=== PATIENT | male | born 1960 | race Caucasian/White ===

== ENCOUNTER 2019-07-21 14:58 | Emergency (ER) | payer SELFPAY ==
[2019-07-21] MEDS ORDERED: diPHENhydraMINE PO* 25 MG PO ONE (16:00)
--- NOTE | 2019-07-21 16:08 | ED ---
Allergic Reaction/Systemic - HPI Summary HPI Summary: This patient is a 59 year old M presenting to ED with a chief complaint of bee sting to the left forearm at 1400 today. The last time he was stung was 20 years ago. He does not have a history of anaphylaxis reaction to bee sting. The patient rates the pain 1/10 in severity. Symptoms aggravated by nothing. Symptoms alleviated by nothing. Patient reports nausea, pain/rash at site of sting. Patient denies lip swelling, throat tightening, SOB. - History of Current Complaint Chief Complaint: EDAllergicReaction Time Seen by Provider: 07/21/19 15:40 Hx Obtained From: Patient Onset/Duration: Sudden Onset, Started hours ago - At 1400 today, Still Present Timing: Constant Severity Initially: Mild Severity Currently: Mild Pain Intensity: 1 Pain Scale Used: 0-10 Numeric Location: Discrete @ - Left forearm Aggravating Factor(s): Nothing Alleviating Factor(s): Nothing Associated Signs And Symptoms: Positive: Nausea, Rash. Negative: Difficulty Breathing, Throat Tightening - Allergies/Home Medications Allergies/Adverse Reactions: Allergies Allergy/AdvReac Type Severity Reaction Status Date / Time Tree Nuts Allergy Unknown See Comment Verified 07/21/19 15:03 Fish Containing Products Allergy Unknown Verified 07/21/19 15:03 Reaction Details PMH/Surg Hx/FS Hx/Imm Hx Endocrine/Hematology History: Denies: Hx Diabetes Cardiovascular History: Denies: Hx Hypercholesterolemia, Hx Hypertension Sensory History: Denies: Hx Legally Blind, Hx Deafness Opthamlomology History: Denies: Hx Legally Blind EENT History: Denies: Hx Deafness - Surgical History Surgery Procedure, Year, and Place: Inguinal hernia repair 2014. Infectious Disease History: No Infectious Disease History: Denies: Traveled Outside the [place] in Last 30 Days - Family History Known Family History: Positive: Cardiac Disease, Diabetes, Other - Cancer - Social History Alcohol Use: Daily Alcohol Amount: 2 beers a night Hx Substance Use: Yes Substance Use Type: Reports: Marijuana Substance Use Comment - Amount & Last Used: occasionally Smoking Status (MU): Heavy Every Day Tobacco Smoker Review of Systems ENT: Negative - Lip swelling, throat tightening Negative: Shortness Of Breath Positive: Nausea Skin: Other - Rash/pain on left forearm All Other Systems Reviewed And Are Negative: Yes Physical Exam - Summary Physical Exam Summary: VITAL SIGNS: Reviewed. GENERAL: Patient is a well-developed and nourished M who is lying comfortable in the stretcher. Patient is not in any acute respiratory distress. HEAD AND FACE: No signs of trauma. No ecchymosis, hematomas or skull depressions. No sinus tenderness. EYES: PERRLA, EOMI x 2, No injected conjunctiva, no nystagmus. EARS: Hearing grossly intact. Ear canals and tympanic membranes are within normal limits. MOUTH: Oropharynx within normal limits. No swelling of tongue and lips. NECK: Supple, trachea is midline, no adenopathy, no JVD, no carotid bruit, no c- spine tenderness, neck with full ROM. CHEST: Symmetric, no tenderness at palpation. LUNGS: Clear to auscultation bilaterally. No wheezing or crackles. CVS: Regular rate and rhythm, S1 and S2 present, no murmurs or gallops appreciated. ABDOMEN: Soft, non-tender. No signs of distention. No rebound, no guarding, and no masses palpated. Bowel sounds are normal. EXTREMITIES: FROM in all major joints, no edema, no cyanosis or clubbing. NEURO: Alert and oriented x 3. No acute neurological deficits. Speech is normal and follows commands. SKIN: Erythema of left forearm. Triage Information Reviewed: Yes Vital Signs On Initial Exam: Initial Vitals Temp Pulse Resp BP Pulse Ox 98.7 F 78 18 163/83 90 07/21/19 15:00 07/21/19 15:00 07/21/19 15:00 07/21/19 15:07/21/19 15:00 Vital Signs Reviewed: Yes Diagnostics - Vital Signs Vital Signs Temp Pulse Resp BP Pulse Ox 07/21/19 15:00 98.7 F 78 18 163/83 90 - Laboratory Lab Statement: Any lab studies that have been ordered have been reviewed, and results considered in the medical decision making process. Allergic Reaction Course/Dx - Course Assessment/Plan: Patient is a 59-year-old male who presents to the emergency department with a localized reaction in the form after he had a bee sting. Patient denies any shortness of breath, denies any swelling, any lip swelling, any feelings that his throat is closing. The patient was evaluated and treated in the ED and the patients symptoms resolved. The patient was observed for approximately 2 hours in the ED and the symptoms do not worsen only improved. Therefore, the patient will be discharged home with follow-up with PCP. Patient was given a prescription for Benadryl. I discussed all the findings and test results with the patient. Patient was instructed to return to the emergency room immediately if any of the symptoms return or worsen. Plan of care was discussed with the patient and understands and agrees. All questions were answered at patient satisfaction. There were no further complaints or concerns. Lung exam before discharge: CTA B/L. Good air exchange. No wheezing or crackles heard. CVS: S1 and S2 present. No murmurs appreciated. Patient is alert and oriented x 3. Patient is hemodynamically stable. Patient will be discharged home with follow up PCP in the next 2-3 days - Diagnoses Differential Diagnosis/HQI/PQRI: Positive: Anaphylaxis, Angioedema, Local Allergic Reaction, Urticaria Provider Diagnoses: Allergic reaction Discharge ED - Sign-Out/Discharge Documenting (check all that apply): Patient Departure - Disharge Patient Received Moderate/Deep Sedation with Procedure: No - Discharge Plan Condition: Stable Disposition: HOME Prescriptions: diPHENhydraMINE PO* [Benadryl PO 25 MG TAB*] 25 mg PO TID PRN #30 tab PRN Reason: Allergy Symptoms Patient Education Materials: Insect Bite or Sting (ED), Allergies (ED) Referrals: Jose MELGAR,Neo Machado [Primary Care Provider] - 3 Days Additional Instructions: FOLLOW UP WITH YOUR PRIMARY CARE PROVIDER WITHIN ONE WEEK. RETURN TO THE ED FOR ANY WORSENING OR NEW SYMPTOMS. - Billing Disposition and Condition Condition: STABLE Disposition: Home - Attestation Statements Document Initiated by Arie: Yes Documenting Scribe: Rahul Tejeda Provider For Whom Arie is Documenting (Include Credential): Pankaj Small MD Scribe Attestation: Rahul Goetz, scribed for Pankaj Small MD on 07/22/19 at 1852. Scribe Documentation Reviewed: Yes Provider Attestation: The documentation as recorded by the Rahul brooks accurately reflects the service I personally performed and the decisions made by me, Pankaj Small MD Status of Scribe Document: Viewed
[2019-07-21 17:35] VITALS: BP 163/90
== END 2019-07-21 17:15 | disposition home or self-care (01) ==
LOC: ED 14:58
DX: T63.441A Toxic effect of venom of bees, accidental (unintentional), initial encounter (principal); Y92.9 Unspecified place or not applicable; F17.200 Nicotine dependence, unspecified, uncomplicated
CPT/HCPCS: 99282; A9270-GY

== ENCOUNTER 2019-12-17 17:09 | Inpatient (IN) | payer BC, OTHER ==
--- NOTE | 2019-12-17 18:09 | ED ---
Lower Extremity - HPI Summary HPI Summary: 59-year-old male presents to the emergency department today complaining of right foot pain for approximately 3 months. Patient states he believes his pain started when he got new shoes and started working at [employer]. Patient has tried self medicating with various creams with no relief of symptoms. Patient complains of swelling which he noted today as well as crusting to his bilateral feet which has been there for months. Patient states he has no medical history diabetes. Patient is able to granulate and otherwise feels well and denies fever, chest pain, abdominal pain, shortness of breath, pain with urination, nausea, vomiting diarrhea. Surgical history and family history Dr. Morfin. - History of Current Complaint Chief Complaint: EDExtremityLower Stated Complaint: R FOOT SWOLLEN PER PT Time Seen by Provider: 12/17/19 17:45 Hx Obtained From: Patient Onset of Pain: Prior to Arrival Onset/Duration: Weeks Severity Initially: Moderate Severity Currently: Moderate Pain Intensity: 6 Pain Scale Used: 0-10 Numeric Location: Is Discrete @ Character Of Pain: Aching Associated Signs And Symptoms: Positive: Swelling, Redness. Negative: Fever Aggravating Factor(s): Standing, Ambulation, Movement, Weight Bearing, Stairs Alleviating Factor(s): Rest Able to Bear Weight: Yes - Allergies/Home Medications Allergies/Adverse Reactions: Allergies Allergy/AdvReac Type Severity Reaction Status Date / Time Tree Nuts Allergy Unknown See Comment Verified 12/17/19 17:13 Fish Containing Products Allergy Unknown Verified 12/17/19 17:13 Reaction Details Home Medications: Home Medications diPHENhydraMINE PO* [Benadryl PO 25 MG TAB*] 25 mg PO TID PRN #30 tab 07/21/19 [ Rx Confirmed 12/17/19] PMH/Surg Hx/FS Hx/Imm Hx Endocrine/Hematology History: Denies: Hx Diabetes Cardiovascular History: Denies: Hx Hypercholesterolemia, Hx Hypertension Sensory History: Denies: Hx Legally Blind, Hx Deafness Opthamlomology History: Denies: Hx Legally Blind - Surgical History Surgery Procedure, Year, and Place: Inguinal hernia repair 2013. Infectious Disease History: No Infectious Disease History: Denies: Traveled Outside the [place] in Last 30 Days - Family History Known Family History: Positive: Cardiac Disease, Diabetes, Other - Cancer - Social History Alcohol Use: Daily Alcohol Amount: 2 beers a night Hx Substance Use: Yes Substance Use Type: Reports: Marijuana Substance Use Comment - Amount & Last Used: occasionally Smoking Status (MU): Heavy Every Day Tobacco Smoker Review of Systems Constitutional: Negative Eyes: Negative ENT: Negative Cardiovascular: Negative Respiratory: Negative Gastrointestinal: Negative Genitourinary: Negative Positive: Edema Positive: Rash Neurological/Mental Status: Negative Psychological: Normal All Other Systems Reviewed And Are Negative: Yes Physical Exam - Summary Physical Exam Summary: Inspection of the lower extremities reveals bilateral erythema, scaling, edema. Physical exam is consistent with venous stasis bilaterally. Inspection of the right foot shows full range of motion with 2+ pitting edema with no evidence of abscess. There is considerable scaling to the plantar aspect of the right foot with yellow/green drainage from the base of the toes where there is small open wound. Physical examination consistent with cellulitis with venous stasis. Triage Information Reviewed: Yes Vital Signs On Initial Exam: Initial Vitals Temp Pulse Resp BP Pulse Ox 97.4 F 80 18 155/83 95 12/17/19 17:10 12/17/19 17:10 12/17/19 17:10 12/17/19 17:10 12/17/19 17:10 Vital Signs Reviewed: Yes Appearance: Positive: Well-Appearing, No Pain Distress, Well-Nourished Skin: Positive: Warm, Skin Color Reflects Adequate Perfusion Eyes: Positive: EOMI, CELENA ENT: Positive: Hearing grossly normal Respiratory/Lung Sounds: Positive: Clear to Auscultation, Breath Sounds Present Cardiovascular: Positive: RRR, S1, S2 Musculoskeletal: Positive: Strength/ROM Intact Psychiatric: Positive: Normal, Affect/Mood Appropriate AVPU Assessment: Alert Procedures - Sedation Patient Received Moderate/Deep Sedation with Procedure: No Diagnostics - Vital Signs Vital Signs Temp Pulse Resp BP Pulse Ox 12/17/19 17:10 97.4 F 80 18 155/83 95 - Laboratory Result Diagrams: 12/17/19 18:10 12/17/19 18:10 Lab Statement: Any lab studies that have been ordered have been reviewed, and results considered in the medical decision making process. Lower Extremity Course/Dx - Course Course Of Treatment: Patient was evaluated in the emergency department today for right foot pain. Vitals noted. Patient afebrile. Physical exam was consistent with cellulitis and possible osteomyelitis. Labs returned showing leukocytosis with a white blood cell count of 11.5. There is a left shift with an absolute neutrophil count of 8.7. CRP is elevated at 25.76. There are no other significant Electrolyte abnormalities or evidence of anemia. Blood glucose 90. X-ray was done which shows no obvious fracture however there is question for possible osteomyelitis. Patient was given 1 dose of IV clindamycin in the emergency department. Hospitalist, Dr. Ibarra was consulted for admission of the patient for MRI and IV antibiotics for possible osteomyelitis. Hospitalist agreed to take the patient for admission. - Diagnoses Differential Diagnosis/HQI/PQRI: Positive: Arthritis, Fracture (Closed), Infection, Osteomyelitis, Sprain, Strain Provider Diagnoses: Infection of right foot Discharge ED - Sign-Out/Discharge Documenting (check all that apply): Patient Departure - Discharge Plan Condition: Stable Disposition: ADMITTED TO [facility] - Billing Disposition and Condition Condition: STABLE Disposition: Admitted to [facility] - Attestation Statements Provider Attestation: I was available for consultation for this patient. I did not evaluate the patient or participate in any medical decision making or disposition decisions unless I am specifically named in the chart as having consulted on the patient. If I have consulted on the patient, please see my own ED note on the patient encounter. Christopher Griffith MD
[2019-12-17 18:17] LABS: ABS Basophils 0.1 10^3/ul (0-0.2); ABS Eosinophils 0.2 10^3/ul (0-0.6); ABS Lymphocytes 1.5 10^3/ul (1.0-4.8); ABS Neutrophils 8.7 10^3/ul (1.5-7.7); Eosinophil % 1.7 %; Hematocrit 49 % (42-52); Lymphocyte % 13.3 %; Mean Corpuscular HGB Conc 33 g/dL (31-36); Mean Corpuscular Hemoglobin 31 pg (27-31); Mean Corpuscular Volume 93 fL (80-94); Mean Platelet Volume 8.3 fL (7.4-10.4); Nucleated Red Blood Cells % 0.1; Platelet Count 259 10^3/uL (150-450); Red Blood Count 5.24 10^6 /uL (4.18-5.48); Red Cell Distribution Width 16 % (10-15); White Blood Count 11.5 10^3/uL (3.5-10.8)
[2019-12-17] MEDS ORDERED: Clindamycin 600 MG/D5W BAG(*) 600 MG/50 ML BAG IV ONE (18:27)
[2019-12-17 18:34] LABS: Albumin 3.7 g/dL (3.2-5.2); Albumin/Globulin Ratio 0.9 (1-3); BUN/Creatinine Ratio 20.3 (8-20); C Reactive Protein 25.76 mg/L (<8.01); Calcium 8.8 mg/dL (8.6-10.3); EGFR Non-African American 128.9 (>60); Globulin 4.1 g/dL (2-4); Potassium 4.2 mmol/L (3.5-5.0); Total Bilirubin 0.5 mg/dL (0.2-1.0); Total Protein 7.8 g/dL (6.4-8.9)
[2019-12-17] MEDS ORDERED: Ondansetron INJ* 2 MG/ML VIAL IV PRN (19:50)
[2019-12-17] MEDS: Acetaminophen TAB* 325 MG PO PRN (21:51)
[2019-12-17] MEDS: Enoxaparin(*) 40 MG/0.4 ML SYR SUBCUT SCH (21:52)
[2019-12-17] MEDS ORDERED: Piperacillin/Tazobac ADVAN(*) 3.375 GM in NS 0.9% 100 ML* 100 ML IVPB ONE (22:02)
[2019-12-17 22:04] LABS: Erythrocyte Sed Rate 14 mm/Hr (0-19)
[2019-12-17] MEDS ORDERED: Dextrose 50% Syringe 50 ML* 25 GM/50 ML SYRINGE IV PUSH PRN (22:58)
[2019-12-17] MEDS ORDERED: Zosyn per Pharmacy* NOTE FOLLOW UP SCH (23:00)
[2019-12-17] MEDS ORDERED: Vancomycin(*) 1,750 MG in NS 0.9% 500 ML* 500 ML IVPB ONE (23:00)
[2019-12-17] MEDS ORDERED: Vancomycin per Pharmacy* NOTE FOLLOW UP SCH (23:00)
--- NOTE | 2019-12-18 01:27 | HP ---
AMENDED REPORT NOW INCLUDES DESIGNATED COSIGNER ADMISSION HISTORY AND PHYSICAL: DATE OF ADMISSION: 12/17/19 PRIMARY CARE PHYSICIAN: Dr. Pemberton. PROVIDER: Messi Downs NP ATTENDING PHYSICIAN: Dr. Ibarra.* (DICTATED BY MESSI DOWNS NP) CHIEF COMPLAINT: Right lower extremity wound. HISTORY OF PRESENT ILLNESS: This is a 59-year-old male with a past medical history significant for previous cellulitis in the right leg and inguinal hernia repair, who came to the emergency room on 12/17/19 for progressive pain and nonhealing wound to the right lower extremity. The patient stated that in June, he started a new job and therefore bought a new pair of boots, but the boots caused some friction across the top of his toes and caused an open wound, which has been there for the past several months. He has tried dealing with it at home by wearing double socks and applying various different antibiotic creams and he stated that within the past month, he has noticed sloughing of skin from his right foot any time he takes his sock off. He has denied any fever or chills. Denies any numbness or tingling except for a spot to his right lateral thigh that has been there since either July or August. He has also reported frequent urination, thirst, occasional chills, occasional nonproductive cough and occasional nausea. In the emergency room, labs were drawn, he was given a dose of clindamycin and foot x-ray was taken, though still awaiting official radiologic read from that. An an MRI was performed of the right lower extremity. Hospitalists were asked to evaluate the patient for admission. PAST MEDICAL HISTORY: Cellulitis to the right lower extremity. PAST SURGICAL HISTORY: 1. Inguinal hernia repair. 2. Shrapnel removal from this throat. HOME MEDICATION: Diphenhydramine 25 mg p.o. t.i.d. p.r.n. ALLERGIES: TREE NUTS and FISH-CONTAINING PRODUCTS. FAMILY HISTORY: His brother had cancer of unknown kind and diabetes. Sister had hypertension and "breathing problems." Other sister had "heart trouble", SOCIAL HISTORY: He smokes less than a pack of cigarettes a day for the past 30 years. He denies any alcohol or recreational substance use. 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 He is not and has no children. REVIEW OF SYSTEMS: A 12-point system review was reviewed. All pertinent positives and negatives are reviewed in the HPI. PHYSICAL EXAMINATION GENERAL: This is a well-developed obese gentleman seen sitting in the bed, in no acute distress. VITAL SIGNS: 97.7 Fahrenheit, 70 pulse, 18 respirations, 96% oxygen on room air and 146/79 blood pressure. HEENT: Conjunctivae pink and moist. PERRLA. EOMs intact. Oropharynx clear. Mucous membranes moist. NECK: Supple. RESPIRATORY: Lung sounds clear throughout bilaterally on room air. No accessory muscle use noted. CARDIAC: S1, S2 present. Heart rate regular. No murmurs, gallops or rubs appreciated. ABDOMEN: Soft, nontender, nondistended with positive bowel sounds x4. MUSCULOSKELETAL: Limited range of motion to the right ankle due to edema. Has 2 to 3+ nonpitting edema to the right lower extremity and 1 to 2 + nonpitting edema to the left lower extremity. 2+ positive pedal pulses bilaterally. NEUROLOGIC: Sensation intact to light touch except for area to right lateral thigh. No other focal deficits appreciated. SKIN: Bilateral lower extremities discolored. Right lower extremity is reddened and dusky. Cap refill is less than 3 seconds. Across the top of his right toes, skin is open and moist with yellow serous drainage. Bilateral lower extremities dry and scaly. PSYCH: He is alert and oriented x4. Thought content organized. DIAGNOSTIC STUDIES/LAB DATA: Foot x-ray performed, still awaiting official radiologic read. 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 Pertinent lab data: WBC is 11.5, creatinine 0.64, BUN and creatinine ratio 20.3. Hemoglobin A1c 6.8. C-reactive protein 25.76. Globulin 4.1, albumin/ globulin ratio 0.9. PLAN FOR EACH CONDITION: 1. Cellulitis with probable osteomyelitis of the right lower extremity. Initially, the patient received 1 dose of clindamycin in the emergency room, however, after MRI revealed possible osteomyelitis, antibiotic coverage was switched to vancomycin and piperacillin. Infectious Disease has been consulted. Ortho should also be consulted in the a.m. Nonhealing wound was suspected to be secondary to possible diabetes as it runs in his family, so hemoglobin A1c was drawn. We will check lipids in a.m. and ankle-brachial indices have been ordered for suspected peripheral vascular disease. 2. Nicotine dependence. I have ordered 14 mg nicotine patch for while he is an inpatient. 3. Newly diagnosed diabetes. Hemoglobin A1c was 6.8. The patient has been symptomatic as evidenced by frequent urination and excessive thirst. The patient has been placed on fingersticks a.c. with sliding scale lispro coverage with the intent that he should be started on metformin upon discharge and we will require referral to the [facility]. 4. New diagnosed hypertension. Blood pressure upon arrival was 155/83 and has remained elevated in the 140s and 150s for several subsequent readings. For its kidney protective factor, we will start the patient on lisinopril in the a.m. 5. DVT prophylaxis: The patient has been started on Lovenox. 6. Code status is full code. 7. Condition is fair. 8. Disposition is to admit inpatient to [address] [place] [address]. TIME SPENT: Time spent on the patient is about 60 minutes with 30 of that spent face to face. MESSI DOWNS, MIME ARTIST [id number]/CPS #: [id number] [facility] DIVISIONAzeem
[2019-12-18] MEDS: ZOSYN 3.375 GM Q8H per EXTENDED INFUSION IVPB SCH ×4 (02:56→10:50)
[2019-12-18] MEDS ORDERED: Clindamycin 600 MG/D5W BAG(*) 600 MG/50 ML BAG IV SCH (04:00)
[2019-12-18] MEDS: Nicotine Patch Removal NOTE FOLLOW UP SCH (05:17)
[2019-12-18 06:19] LABS: ABS Basophils 0.1 10^3/ul (0-0.2); ABS Eosinophils 0.3 10^3/ul (0-0.6); ABS Lymphocytes 1.8 10^3/ul (1.0-4.8); ABS Monocytes 0.9 10^3/ul (0-0.8); ABS Neutrophils 6.3 10^3/ul (1.5-7.7); Eosinophil % 3.1 %; Hematocrit 49 % (42-52); Hemoglobin 16.2 g/dL (14.0-18.0); Lymphocyte % 19.6 %; Mean Corpuscular HGB Conc 33 g/dL (31-36); Mean Corpuscular Hemoglobin 31 pg (27-31); Mean Corpuscular Volume 94 fL (80-94); Nucleated Red Blood Cells % 0.1; Platelet Count 257 10^3/uL (150-450); Red Blood Count 5.18 10^6 /uL (4.18-5.48); Red Cell Distribution Width 16 % (10-15); White Blood Count 9.4 10^3/uL (3.5-10.8)
[2019-12-18 07:10] LABS: Calcium 8.6 mg/dL (8.6-10.3); EGFR African American 161.8 (>60); EGFR Non-African American 133.7 (>60); HDL Cholesterol 40.1 mg/dL; Potassium 4.1 mmol/L (3.5-5.0)
[2019-12-18] MEDS: Vancomycin(*) 1,250 MG in NS 0.9% 250 ML* 250 ML IVPB SCH ×2 (07:59→16:35)
[2019-12-18] MEDS: Nicotine PATCH 14 MG/24 HR* PATCH TRANSDERM SCH (08:21)
[2019-12-18] MEDS: Insulin LISPRO* 1 UNITS UNIT SUBCUT SCH ×3 (08:22→16:43)
[2019-12-18] MEDS: Lisinopril TAB* 5 MG PO SCH (08:22)
[2019-12-18] MEDS ORDERED: Influenza VAC *QUAD* 2019-20* 0.5 ML SYRINGE IM ONE (09:00)
--- NOTE | 2019-12-18 10:37 | PN ---
Subjective Date of Service: 12/18/19 Interval History: Patient has been uninsured for the last 3 years and therefore has not seen a medical provider. He only within the last 1-2 months acquired insurance and established with a new PCP. This is the reason why he has not been evaluated much sooner for this wound. He denies fever/chills, chest pain, difficulty breathing, abd pain. His right foot heel is painful at times but tolerable. His toes to his right toe bases are only painful with movement of the toes. Objective Active Medications: Acetaminophen (Tylenol Tab*) 650 mg PO Q4H PRN PRN Reason: MILD PAIN or TEMP > 100.4 Last Admin: 12/17/19 21:51 Dose: 650 mg Dextrose (D50w Syringe 50 Ml*) 12.5 gm IV PUSH .FOR FS < 60 - SS PRN PRN Reason: FS < 60 Enoxaparin Sodium (Lovenox(*)) 40 mg SUBCUT Q24H [facility] Last Admin: 12/17/19 21:52 Dose: 40 mg Piperacillin Sod/Tazobactam (Sod 3.375 gm/ Sodium Chloride) 100 mls @ 25 mls/ hr IVPB Q8H [facility] Last Admin: 12/18/19 02:56 Dose: 25 mls/hr Vancomycin HCl 1,250 mg/ (Sodium Chloride) 250 mls @ 166.667 mls/hr IVPB Q8H [facility] Last Admin: 12/18/19 07:59 Dose: 166.667 mls/hr Insulin Human Lispro (Humalog*) 0 units SUBCUT [facility]; Protocol Last Admin: 12/18/19 08:22 Dose: 2 units Lisinopril (Prinivil Tab*) 5 mg PO DAILY [facility] Last Admin: 12/18/19 08:22 Dose: 5 mg Metformin HCl (Glucophage*) 500 mg PO DAILY [facility] Nicotine (Nicotine Patch 14 Mg/24 Hr*) 1 patch TRANSDERM DAILY [facility] Last Admin: 12/18/19 08:21 Dose: 1 patch Ondansetron HCl (Zofran Inj*) 4 mg IV Q4H PRN PRN Reason: NAUSEA/VOMITING Pharmacy Consult (Vancomycin Per Pharmacy*) 1 note FOLLOW UP .VANC PER PHARMACY [facility]; Protocol Pharmacy Consult (Zosyn Per Pharmacy*) 1 note FOLLOW UP .ZOSYN PER PHARMACY [facility] Pharmacy Profile Note (Nicotine Patch Removal Note*) 1 note FOLLOW UP 0600 [facility] Last Admin: 12/18/19 05:17 Dose: Not Given Vital Signs - 8 hr 12/18/19 12/18/19 12/18/19 03:15 07:15 08:00 Temperature 98.1 F 98.6 F Pulse Rate 65 64 Respiratory 18 18 16 Rate Blood Pressure 150/82 142/87 (mmHg) O2 Sat by Pulse 91 91 Oximetry Oxygen Devices in Use Now: None Appearance: Obese, white male who appears older than stated age, laying upright in bed, appearing comfortable and in NAD Eyes: No Scleral Icterus, - - PERRL Ears/Nose/Mouth/Throat: Mucous Membranes Moist Neck: Trachea Midline Respiratory: Symmetrical Chest Expansion and Respiratory Effort, Clear to Auscultation Cardiovascular: NL Sounds; No Murmurs; No JVD, RRR, - - strong pedal pulses bilaterally Abdominal: - - abd soft, nontender, nondistended Extremities: No Edema, No Clubbing, Cyanosis Skin: - - bilateral lower legs with skin coloration changes consistent with chronic venous changes; 5 excoriations to right lateral foot near heel; dry, nonpurulent wounds approx 1cm to 1.5cm in length in the toe creases at base of 4th toe 2nd toe respectively with surrounding minimal blanching erythema; significant dryness in all feet Neurological: Alert and Oriented x 3, - - sensation to light touch intact grossly in all toes Result Diagrams: 12/18/19 05:09 12/18/19 05:09 Assess/Plan/Problems-Billing Assessment: 59 yo white male without significant PMHx who has been lost to f/u presents with right foot wounds x ~5 months. - Patient Problems (1) Wound of right foot Current Visit: Yes Status: Acute Code(s): S91.301A - UNSPECIFIED OPEN WOUND , RIGHT FOOT, INITIAL ENCOUNTER SNOMED Code(s): 422713880 Comment: -nonhealing wounds to right foot, present for +5 months -has significant dryness, ordering santyl -recommend calcium alginate for wounds as they are overall dry, discussed w/ nursing -will need good glycemic control (2) Osteomyelitis Current Visit: Yes Status: Acute Code(s): M86.9 - OSTEOMYELITIS, UNSPECIFIED SNOMED Code(s): 61086927 Comment: -2/2 nonhealing wounds of right foot -MRI findings conistent with suspected osteomyelitis of right 2nd distal metatarsal -wound culture PCR negative for MRSA, will change abx to ceftriaxone and flagyl while awaiting full culture -will discuss with ID Friday (12/20/19) -appreciate ortho consult, awaiting decision regarding surgical debridement of wounds (3) Cellulitis of right foot Current Visit: Yes Status: Acute Code(s): L03.115 - CELLULITIS OF RIGHT LOWER LIMB SNOMED Code(s): 759944839 Comment: -2/2 nonhealing right foot wounds -minimal leukocytosis at admission, resolved -afebrile -abx as above (4) Diabetes mellitus type 2 in obese Current Visit: Yes Status: Acute Code(s): E11.69 - TYPE 2 DIABETES MELLITUS WITH OTHER SPECIFIED COMPLICATION; E66.9 - OBESITY, UNSPECIFIED SNOMED Code(s) : 45506061 Comment: -new diagnosis during this hospitalization with A1c of 6.8 -continue lispro SS -starting 500 mg metformin and will monitor for GI sxs -carbohydrate consistent diet -nutrition consult (5) Hypertension Current Visit: Yes Status: Acute Code(s): I10 - ESSENTIAL (PRIMARY) HYPERTENSION SNOMED Code(s): 47548635 Comment: -new dx during this hospitalization -continue new lisinopril (6) Tobacco use Current Visit: Yes Status: Acute Code(s): Z72.0 - TOBACCO USE SNOMED Code( s): 206304621 Comment: -continue nicotine patch (7) DVT prophylaxis Current Visit: Yes Status: Acute Code(s): Z29.9 - ENCOUNTER FOR PROPHYLACTIC MEASURES, UNSPECIFIED SNOMED Code(s): 467331688 Comment: -lovenox (8) Full code status Current Visit: Yes Status: Acute Code(s): Z78.9 - OTHER SPECIFIED HEALTH STATUS SNOMED Code(s): 086280789 Status and Disposition: inpatient
[2019-12-18] MEDS: metFORMIN* 500 MG TAB PO SCH (11:04)
--- NOTE | 2019-12-18 12:43 | CONS ---
CONSULTATION REPORT: DATE OF CONSULT: 12/18/19 CHIEF COMPLAINT: Right foot pain. HISTORY OF PRESENT ILLNESS: Leif is a 59-year-old man who has recently been diagnosed with diabetes. He has not had any primary care for several years. He got a new job at [employer] and as a result got some new boots because he knew he would be on his feet all day. The boots started to cause some pain in his foot and he noticed over the last couple of months that his foot, specifically at the area of his toes, has become more painful, swollen, and red, yesterday was bad enough that he came to the emergency department. He was admitted by the hospitalist for IV antibiotics because an MRI showed a suggestion of early osteomyelitis in his right foot. I was asked to consult and evaluate his right foot. PHYSICAL EXAM: He is a 59-year-old gentleman in mild discomfort, lying in bed. On examination of his right foot and right lower extremity, he has a lot of venous stasis changes. His foot is rather swollen specifically in the mid foot and forefoot area. He has some significant dry skin areas and some cracked areas but no specific open wound. Between the toes is macerated and erythematous. There is no purulent drainage. IMPRESSION: Right foot infection with at least a cellulitis and possibly an osteomyelitis. PLAN: Plan is per the hospitalist and possibly ID consult for IV antibiotics. I will have Dr. Tony evaluate his foot to see if any surgical debridement is warranted in the next couple of days. [id number]/[facility] #: [id number] LONG
[2019-12-18] MEDS: Collagenase 250 UNITS/GM OINT* 1 APPLIC OINT TOPICAL SCH (12:53)
[2019-12-18] MEDS ORDERED: Cefepime 2 GM in Dextrose(*) 2 GM/50 ML BAG IV SCH (16:00)
[2019-12-18] MEDS: metroNIDAZOLE IV 500 MG/100ML* 500 MG/100 ML BAG IVPB SCH (17:09)
[2019-12-18] MEDS: Acetaminophen TAB* 325 MG PO PRN (19:57)
[2019-12-18] MEDS: Enoxaparin(*) 40 MG/0.4 ML SYR SUBCUT SCH (19:58)
[2019-12-18] MEDS: cefTRIAXone(*) 1 GM in NS 0.9% 50 ML* 50 ML IVPB SCH (20:00)
[2019-12-19] MEDS: metroNIDAZOLE IV 500 MG/100ML* 500 MG/100 ML BAG IVPB SCH ×3 (01:46→16:56)
[2019-12-19] MEDS: Nicotine Patch Removal NOTE FOLLOW UP SCH (06:00)
[2019-12-19] MEDS: Insulin LISPRO* 1 UNITS UNIT SUBCUT SCH ×3 (07:29→16:56)
[2019-12-19] MEDS: metFORMIN* 500 MG TAB PO SCH (09:12)
[2019-12-19] MEDS: Collagenase 250 UNITS/GM OINT* 1 APPLIC OINT TOPICAL SCH (09:13)
[2019-12-19] MEDS: Lisinopril TAB* 5 MG PO SCH (09:13)
[2019-12-19] MEDS: Nicotine PATCH 14 MG/24 HR* PATCH TRANSDERM SCH (09:15)
--- NOTE | 2019-12-19 13:18 | PN ---
Subjective Date of Service: 12/19/19 Interval History: Patient overall has no complaints. 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 Denies fever/chills, LE pain, chest pain, abd pain, difficulty breathing. No diarrhea or loose BMs. Objective Active Medications: Acetaminophen (Tylenol Tab*) 650 mg PO Q4H PRN PRN Reason: MILD PAIN or TEMP > 100.4 Last Admin: 12/18/19 19:57 Dose: 650 mg Collagenase (Santyl 250 Units/Gm Oint*) 1 applic TOPICAL DAILY [facility] Last Admin: 12/19/19 09:13 Dose: 1 applic Dextrose (D50w Syringe 50 Ml*) 12.5 gm IV PUSH .FOR FS < 60 - SS PRN PRN Reason: FS < 60 Enoxaparin Sodium (Lovenox(*)) 40 mg SUBCUT Q24H [facility] Last Admin: 12/18/19 19:58 Dose: 40 mg Ceftriaxone Sodium 1 gm/ (Sodium Chloride) 50 mls @ 100 mls/hr IVPB Q24H [facility] Last Admin: 12/18/19 20:00 Dose: 100 mls/hr Metronidazole/Sodium Chloride (Flagyl 500 Mg Ivpb*) 500 mg in 100 mls @ 100 mls /hr IVPB Q8H [facility] Last Admin: 12/19/19 09:12 Dose: 100 mls/hr Insulin Human Lispro (Humalog*) 0 units SUBCUT [facility]; Protocol Last Admin: 12/19/19 11:52 Dose: Not Given Lisinopril (Prinivil Tab*) 5 mg PO DAILY [facility] Last Admin: 12/19/19 09:13 Dose: 5 mg Metformin HCl (Glucophage*) 500 mg PO DAILY [facility] Last Admin: 12/19/19 09:12 Dose: 500 mg Nicotine (Nicotine Patch 14 Mg/24 Hr*) 1 patch TRANSDERM DAILY [facility] Last Admin: 12/19/19 09:15 Dose: 1 patch Ondansetron HCl (Zofran Inj*) 4 mg IV Q4H PRN PRN Reason: NAUSEA/VOMITING Pharmacy Profile Note (Nicotine Patch Removal Note*) 1 note FOLLOW UP 0600 [facility] Last Admin: 12/19/19 06:00 Dose: 1 note Vital Signs - 8 hr 12/19/19 12/19/19 07:15 08:00 Temperature 97.7 F Pulse Rate 64 Respiratory 16 16 Rate Blood Pressure 139/71 (mmHg) O2 Sat by Pulse 91 Oximetry Oxygen Devices in Use Now: None Appearance: Obese white male, laying upright in bed, appearing comfortable and in NAD Eyes: No Scleral Icterus, - - PERRL Ears/Nose/Mouth/Throat: Mucous Membranes Moist Neck: Trachea Midline Respiratory: Symmetrical Chest Expansion and Respiratory Effort, Clear to Auscultation Cardiovascular: NL Sounds; No Murmurs; No JVD, RRR, - - +3 pedal pulses bilaterally Abdominal: - - abd soft, nontender, nondistended Extremities: No Edema, No Clubbing, Cyanosis Skin: - - chronic venous stasis to LEs, R toe wounds remain dry; dressing clean/ dry/intact Neurological: Alert and Oriented x 3 Result Diagrams: 12/18/19 05:09 12/18/19 05:09 Microbiology and Other Data: Microbiology 12/18/19 11:00 Skin and Soft Tissue MRSA/MSSA (PCR - Final Toe - Right Big Mrsa Negative S.aureus Positive Gram Stain - Final Assess/Plan/Problems-Billing Assessment: 59 yo white male without significant PMHx who has been lost to f/u presents with right foot wounds x ~5 months. - Patient Problems (1) Wound of right foot Current Visit: Yes Status: Acute Code(s): S91.301A - UNSPECIFIED OPEN WOUND , RIGHT FOOT, INITIAL ENCOUNTER SNOMED Code(s): 503767072 Comment: -nonhealing wounds to right foot, present for +5 months -has significant dryness, ordering santyl -recommend xeroform for wounds as they are overall dry, discussed w/ nursing -will need good glycemic control -ortho will decide if wound debridement tomorrow AM when Dr. Tony in, ortho recommends NPO after midnight and holding tonight's lovenox in anticipation of possible washout (2) Osteomyelitis Current Visit: Yes Status: Acute Code(s): M86.9 - OSTEOMYELITIS, UNSPECIFIED SNOMED Code(s): 75762496 Comment: -2/2 nonhealing wounds of right foot -MRI findings conistent with suspected osteomyelitis of right 2nd distal metatarsal -wound culture PCR negative for MRSA, will change abx to ceftriaxone and flagyl while awaiting full culture -will discuss with ID Friday (12/20/19) -appreciate ortho consult, awaiting decision regarding surgical debridement of wounds (3) Cellulitis of right foot Current Visit: Yes Status: Acute Code(s): L03.115 - CELLULITIS OF RIGHT LOWER LIMB SNOMED Code(s): 083604765 Comment: -2/2 nonhealing right foot wounds -minimal leukocytosis at admission, resolved -afebrile -abx as above (4) Diabetes mellitus type 2 in obese Current Visit: Yes Status: Acute Code(s): E11.69 - TYPE 2 DIABETES MELLITUS WITH OTHER SPECIFIED COMPLICATION; E66.9 - OBESITY, UNSPECIFIED SNOMED Code(s) : 94720786 Comment: -new diagnosis during this hospitalization with A1c of 6.8 -continue lispro SS -starting 500 mg metformin and will monitor for GI sxs -carbohydrate consistent diet -nutrition consult (5) Hypertension Current Visit: Yes Status: Acute Code(s): I10 - ESSENTIAL (PRIMARY) HYPERTENSION SNOMED Code(s): 12992228 Comment: -new dx during this hospitalization -continue new lisinopril (6) Tobacco use Current Visit: Yes Status: Acute Code(s): Z72.0 - TOBACCO USE SNOMED Code( s): 804551381 Comment: -continue nicotine patch (7) DVT prophylaxis Current Visit: Yes Status: Acute Code(s): Z29.9 - ENCOUNTER FOR PROPHYLACTIC MEASURES, UNSPECIFIED SNOMED Code(s): 604324119 Comment: -lovenox held tonight in anticipation of possible washout tomorrow (8) Full code status Current Visit: Yes Status: Acute Code(s): Z78.9 - OTHER SPECIFIED HEALTH STATUS SNOMED Code(s): 492293368 Status and Disposition: inpatient
--- NOTE | 2019-12-19 14:05 | PN ---
Progress Note - Progress Note Date of Service: 12/19/19 SOAP: Subjective: Pt is doing well. Pain is controlled. Denies F/C, CP/SOB, N/T of calf pain Objective: PE- 59 y/o WDWN M NAD, A&O x3 RLE- chronic skin changes of the lower extremity, edema and erythema of the forefoot that is tender to palpation, no active drainage, abrasion on volar aspect of foot at base of great/2nd toe and 4th toe, +1 DP pulse, SILT distally Vital Signs Temp Pulse Resp BP Pulse Ox 97.7 F 64 16 139/71 91 12/19/19 07:15 12/19/19 07:15 12/19/19 08:00 12/19/19 07:15 12/19/19 07:15 Laboratory Results - last 24 hr 12/18/19 12/19/19 12/19/19 16:43 07:21 11:45 POC Glucose (mg/dL) 127 H 105 H 112 H Studies: MRI showed evidence of right foot cellulitis with possible osteomyelitis of the distal second metatarsal Assessment: Right foot infection Plan: Heel WB Dr. Tony to evaluate tomorrow Afebrile and WBC improving, at this point unlikely that he will need an acute washout- will cont to monitor Will hold lovenox today and make npo after midnight in case he needs to go to OR tomorrow Appreciate hospitalist input May need OLIVIA on DC
[2019-12-19] MEDS: cefTRIAXone(*) 1 GM in NS 0.9% 50 ML* 50 ML IVPB SCH (20:49)
[2019-12-20] MEDS: metroNIDAZOLE IV 500 MG/100ML* 500 MG/100 ML BAG IVPB SCH ×3 (00:29→17:03)
[2019-12-20] MEDS: Nicotine Patch Removal NOTE FOLLOW UP SCH (06:49)
[2019-12-20] MEDS: Insulin LISPRO* 1 UNITS UNIT SUBCUT SCH ×3 (07:39→17:02)
[2019-12-20] MEDS: Lisinopril TAB* 5 MG PO SCH (08:48)
[2019-12-20] MEDS: metFORMIN* 500 MG TAB PO SCH (08:48)
[2019-12-20] MEDS: Nicotine PATCH 14 MG/24 HR* PATCH TRANSDERM SCH (10:25)
--- NOTE | 2019-12-20 11:25 | PN ---
Progress Note - Progress Note Date of Service: 12/20/19 SOAP: Subjective: Pt is doing well. Pain improved. Denies F/C, Cp/SOb or calf pain Objective: PE- 59 y/o WDWN M NAD, A&O x3 RLE- chronic skin changes of the lower extremity, edema and erythema of the forefoot that is tender to palpation, 2nd toe tender to palpation, no active drainage, abrasion on volar aspect of foot at base of great/2nd toe and 4th toe , +1 DP pulse, SILT distally Vital Signs Temp Pulse Resp BP Pulse Ox 97.7 F 63 20 124/70 92 12/20/19 07:15 12/20/19 07:15 12/20/19 08:00 12/20/19 07:15 12/20/19 07:15 Laboratory Results - last 24 hr 12/19/19 12/19/19 12/20/19 11:45 16:42 07:32 POC Glucose (mg/dL) 112 H 134 H 103 H Assessment: Right foot cellulitis/osteomyelitis Plan: Heel WB Dr. Tony to evaluate tomorrow Afebrile foot improving. No need for acute washout Ok to eat- carb consistent diet restarted Restart lovenox ABIs ordered to monitor blood flow Appreciate hospitalist input Cont abx per ID recommendations May need OLIVIA on DC
--- NOTE | 2019-12-20 12:21 | CONS ---
CONSULTATION REPORT: DATE OF CONSULT: 12/20/19 REQUESTING PROVIDER: KASANDRA Boyer CONSULTING SERVICE: Infectious Disease. REASON FOR CONSULT: Foot infection. IMPRESSION: 1. Right forefoot cellulitis with nonhealing non-pressure related wound about the second metatarsal head and an MRI shows possible early osteomyelitis of the second metatarsal head. A wound culture is growing group C strep and methicillin- sensitive Staphylococcus aureus. 2. Stasis dermatitis and venous insufficiency, chronic. 3. Morbid obesity. 4. Undiagnosed type 2 diabetes. Hemoglobin A1c here is 6.8. RECOMMENDATIONS: Continue ceftriaxone and Flagyl. He is going to have ankle- brachial indices. We will likely plan on a long course of IV antibiotics for osteomyelitis of the forefoot. HISTORY OF PRESENT ILLNESS: This is a 59-year-old man with obesity. He has had about 2 to 3 months of a wound over his right forefoot, which developed after wearing some new boots. The wound just never closed up. He has not noticed decreased sensation or tingling in his feet. Here, he was found to have hyperglycemia and a hemoglobin A1c of 6.8. He had MRI with results as above. He has been followed by Orthopedics and having Betadine dressings applied. Initial white count was 11.5 on 12/17/19 down to 9.4 on 12/18/19. Initial CRP was 25. He has not had fevers or chills at home and has not had them here either. PAST MEDICAL HISTORY: 1. Obesity. 2. Status post inguinal hernia repair. 3. History of shrapnel removal from his throat. 4. Type 2 diabetes mellitus. ALLERGIES: No known drug allergies. MEDICATIONS: 1. Tylenol. 2. Enoxaparin. 3. Lisinopril. 4. Metformin. 5. Flagyl 500 mg IV every 8 hours by infusion. 6. Nicotine patch. 7. Ceftriaxone. 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 He lives in [place]. He is a nonsmoker. FAMILY HISTORY: No recurrent infections. REVIEW OF SYSTEMS: All negative except as noted above to a 12-point review. PHYSICAL EXAM: Vital Signs: Temperature is 37, heart rate 60, respiratory rate 18, blood pressure 153/81, oxygen saturation 91% on room air. In general, he is awake, not in distress. Neurologic: He is oriented x3. Follows commands. Moves all extremities. Sensation decreased to light touch in both feet. HEENT: There is no conjunctival hemorrhage. Oropharynx without lesions. Neck: Neck is supple without mass. Heart is regular rate and rhythm without murmurs, rubs, or gallops. Lungs are clear to auscultation bilaterally. Abdomen: Soft, nontender, nondistended. There are bowel sounds present. Skin: There is no rash or splinter hemorrhage. There is stasis dermatitis in the bilateral lower extremities. Musculoskeletal: There is bilateral nonpitting edema. On the right forefoot, there are some eschars between the toes. There is some edema and erythema in the forefoot. Tenderness over the second metatarsal but not the others. LABORATORY DATA: White blood cell count 9, hemoglobin 16, platelets 257. Please see impression and recommendations outlined above, which I have discussed with Dr. Tony. Thanks for asking me to see Mr. Monaco in consultation. [id number]/[facility] #: [id number] MTDD
--- NOTE | 2019-12-20 12:49 | PN ---
Subjective Date of Service: 12/20/19 Interval History: LE pain improving. Denies any complaints Family History: Unchanged from Admission Social History: Unchanged from Admission Past Medical History: Unchanged from Admission Objective Active Medications: Acetaminophen (Tylenol Tab*) 650 mg PO Q4H PRN PRN Reason: MILD PAIN or TEMP > 100.4 Last Admin: 12/18/19 19:57 Dose: 650 mg Collagenase (Santyl 250 Units/Gm Oint*) 1 applic TOPICAL DAILY [facility] Last Admin: 12/19/19 09:13 Dose: 1 applic Dextrose (D50w Syringe 50 Ml*) 12.5 gm IV PUSH .FOR FS < 60 - SS PRN PRN Reason: FS < 60 Enoxaparin Sodium (Lovenox(*)) 40 mg SUBCUT Q24H [facility] Ceftriaxone Sodium 1 gm/ (Sodium Chloride) 50 mls @ 100 mls/hr IVPB Q24H [facility] Last Admin: 12/19/19 20:49 Dose: 100 mls/hr Metronidazole/Sodium Chloride (Flagyl 500 Mg Ivpb*) 500 mg in 100 mls @ 100 mls /hr IVPB Q8H [facility] Last Admin: 12/20/19 10:13 Dose: 100 mls/hr Insulin Human Lispro (Humalog*) 0 units SUBCUT [facility]; Protocol Last Admin: 12/20/19 11:48 Dose: Not Given Lisinopril (Prinivil Tab*) 5 mg PO DAILY [facility] Last Admin: 12/20/19 08:48 Dose: Not Given Metformin HCl (Glucophage*) 500 mg PO DAILY [facility] Last Admin: 12/20/19 08:48 Dose: Not Given Nicotine (Nicotine Patch 14 Mg/24 Hr*) 1 patch TRANSDERM DAILY [facility] Last Admin: 12/20/19 10:25 Dose: 1 patch Ondansetron HCl (Zofran Inj*) 4 mg IV Q4H PRN PRN Reason: NAUSEA/VOMITING Pharmacy Profile Note (Nicotine Patch Removal Note*) 1 note FOLLOW UP 0600 [facility] Last Admin: 12/20/19 06:49 Dose: 1 note Vital Signs - 8 hr 12/20/19 12/20/19 12/20/19 07:15 08:00 11:15 Temperature 97.7 F 98.2 F Pulse Rate 63 59 Respiratory 20 20 18 Rate Blood Pressure 124/70 153/81 (mmHg) O2 Sat by Pulse 92 91 Oximetry Oxygen Devices in Use Now: None Eyes: No Scleral Icterus Ears/Nose/Mouth/Throat: NL Teeth, Lips, Gums Neck: NL Appearance and Movements; NL JVP Respiratory: Symmetrical Chest Expansion and Respiratory Effort Cardiovascular: NL Sounds; No Murmurs; No JVD Abdominal: NL Sounds; No Tenderness; No Distention Extremities: - - bilateral LE edema, erythema improving.Dressing cdi Neurological: Alert and Oriented x 3 Result Diagrams: 12/18/19 05:09 12/18/19 05:09 Microbiology and Other Data: Microbiology 12/18/19 11:00 Skin and Soft Tissue MRSA/MSSA (PCR - Final Toe - Right Big Mrsa Negative S.aureus Positive Gram Stain - Final Assess/Plan/Problems-Billing Assessment: 59 yo white male without significant PMHx who has been lost to f/u presents with right foot wounds x ~5 months. - Patient Problems (1) Wound of right foot Current Visit: Yes Status: Acute Code(s): S91.301A - UNSPECIFIED OPEN WOUND , RIGHT FOOT, INITIAL ENCOUNTER SNOMED Code(s): 759439398 Comment: -nonhealing wounds to right foot, present for +5 months -has significant dryness, ordering santyl -recommend xeroform for wounds as they are overall dry, discussed w/ nursing -will need good glycemic control -ortho will decide if wound debridement this AM when Dr. Tony in, ortho recommended NPO after midnight and holding tonight's lovenox in anticipation of possible washout -Will await ortho input this am (2) Osteomyelitis Current Visit: Yes Status: Acute Code(s): M86.9 - OSTEOMYELITIS, UNSPECIFIED SNOMED Code(s): 15549397 Comment: -2/2 nonhealing wounds of right foot -MRI findings conistent with suspected osteomyelitis of right 2nd distal metatarsal -wound culture PCR negative for MRSA, was changed abx to ceftriaxone and flagyl while awaiting full culture -ID Dr No consulted (12/20/19) -appreciate ortho consult, awaiting decision regarding surgical debridement of wounds (3) Diabetes mellitus type 2 in obese Current Visit: Yes Status: Acute Code(s): E11.69 - TYPE 2 DIABETES MELLITUS WITH OTHER SPECIFIED COMPLICATION; E66.9 - OBESITY, UNSPECIFIED SNOMED Code(s) : 75397325 Comment: -new diagnosis during this hospitalization with A1c of 6.8 -continue lispro SS -starting 500 mg metformin and will monitor for GI sxs -carbohydrate consistent diet -nutrition consult (4) Hypertension Current Visit: Yes Status: Acute Code(s): I10 - ESSENTIAL (PRIMARY) HYPERTENSION SNOMED Code(s): 31421635 Comment: -new dx during this hospitalization -continue new lisinopril (5) Tobacco use Current Visit: Yes Status: Acute Code(s): Z72.0 - TOBACCO USE SNOMED Code( s): 424754762 Comment: -continue nicotine patch (6) DVT prophylaxis Current Visit: Yes Status: Acute Code(s): Z29.9 - ENCOUNTER FOR PROPHYLACTIC MEASURES, UNSPECIFIED SNOMED Code(s): 578589524 Comment: -lovenox held in anticipation of possible washout today (7) Full code status Current Visit: Yes Status: Acute Code(s): Z78.9 - OTHER SPECIFIED HEALTH STATUS SNOMED Code(s): 980357832 Status and Disposition: inpatient
[2019-12-20] MEDS: Collagenase 250 UNITS/GM OINT* 1 APPLIC OINT TOPICAL SCH (13:55)
--- NOTE | 2019-12-20 15:22 | CONS ---
CONSULTATION REPORT: DATE OF CONSULT: 12/20/19 HISTORY OF PRESENT ILLNESS: Leif is a 59-year-old gentleman admitted 3 days ago to the medical service. He had had increasing blistering, swelling, and pain of his right forefoot. He has newly diagnosed diabetes and hypertension. He has been admitted with some elevation to his right leg. ID consult is underway. PHYSICAL EXAM: He on examination has significant venous stasis changes throughout the main and hindfoot area and then a brawny erythema all around the forefoot area with some thickened hyperkeratotic skin. The hyperkeratotic skin is cracking and oozing, but there is no candice ulcer noted. DIAGNOSTIC STUDIES: He has MELISSA studies pending. His MRI shows edema of the proximal phalanx and metatarsal head of the second ray. IMPRESSION AND PLAN: Leif has most likely some osteomyelitis in his forefoot, which would be explained by brawny edema, cellulitis, increased pain and swelling. My preference would be for him to have some broad-spectrum IV antibiotic coverage for a few days before surgery as I am wondering how well his skin will heal given the thickened and dried condition. We will follow with the orthopedic team. [id number]/[facility] #: [id number] LONG
[2019-12-20] MEDS: cefTRIAXone(*) 1 GM in NS 0.9% 50 ML* 50 ML IVPB SCH (20:42)
[2019-12-20] MEDS ORDERED: Enoxaparin(*) 40 MG/0.4 ML SYR SUBCUT SCH (21:00)
[2019-12-21] MEDS: metroNIDAZOLE IV 500 MG/100ML* 500 MG/100 ML BAG IVPB SCH ×3 (00:16→16:48)
[2019-12-21 06:51] LABS: ABS Basophils 0.1 10^3/ul (0-0.2); ABS Eosinophils 0.3 10^3/ul (0-0.6); ABS Lymphocytes 1.4 10^3/ul (1.0-4.8); ABS Monocytes 0.9 10^3/ul (0-0.8); ABS Neutrophils 5.9 10^3/ul (1.5-7.7); Eosinophil % 3.3 %; Hematocrit 49 % (42-52); Hemoglobin 16.5 g/dL (14.0-18.0); Lymphocyte % 16.3 %; Mean Corpuscular HGB Conc 34 g/dL (31-36); Mean Corpuscular Hemoglobin 31 pg (27-31); Mean Corpuscular Volume 92 fL (80-94); Mean Platelet Volume 8.7 fL (7.4-10.4); Nucleated Red Blood Cells % 0.1; Platelet Count 260 10^3/uL (150-450); Red Blood Count 5.34 10^6 /uL (4.18-5.48); Red Cell Distribution Width 16 % (10-15); White Blood Count 8.5 10^3/uL (3.5-10.8)
[2019-12-21 07:03] LABS: BUN/Creatinine Ratio 24.6 (8-20); Calcium 8.8 mg/dL (8.6-10.3); EGFR African American 164.9 (>60); EGFR Non-African American 136.2 (>60); Potassium 4.1 mmol/L (3.5-5.0)
[2019-12-21] MEDS: Nicotine Patch Removal NOTE FOLLOW UP SCH (07:18)
[2019-12-21] MEDS: Insulin LISPRO* 1 UNITS UNIT SUBCUT SCH ×3 (07:54→16:45)
[2019-12-21] MEDS: Lisinopril TAB* 5 MG PO SCH (09:34)
[2019-12-21] MEDS: Nicotine PATCH 14 MG/24 HR* PATCH TRANSDERM SCH (09:34)
[2019-12-21] MEDS: metFORMIN* 500 MG TAB PO SCH (09:34)
[2019-12-21] MEDS: Collagenase 250 UNITS/GM OINT* 1 APPLIC OINT TOPICAL SCH ×2 (09:35→10:10)
--- NOTE | 2019-12-21 10:42 | PN ---
Progress Note - Progress Note Date of Service: 12/21/19 SOAP: Subjective: CC: Right foot infection HPI: Mr. Monaco is a 59 yo male with PMH significant for obesity, peripheral neuropathy, and DM2; who presented to the hospital with a right foot infection. He states that the area started out as dry skin and then developed a black area. Denies fever, chills, nausea, or vomiting. He reports 3-4 loose stools daily. He has baseline peripheral neuropathy. Objective: Vital Signs - 8 hr 12/21/19 12/21/19 12/21/19 03:06 07:15 09:27 Temperature 98 F 98.2 F Pulse Rate 68 92 68 Respiratory 16 18 Rate Blood Pressure 115/52 123/56 160/82 (mmHg) O2 Sat by Pulse 91 93 Oximetry Physical Exam: General: NAD, sitting up in bed Neurological: Alert and Oriented HEENT: Moist MM Cardiovascular: Heart rate regular Respiratory: Lung sounds clear, diminished Abdominal: Bowel sounds present; ABD soft, non tender, and obese MSK: GIFFORD Skin: No rash. Bilateral LEs with hemosiderin staining. Area of black eschar to the dorsal aspect of the right 3rd toe Laboratory Results - last 24 hr 12/20/19 12/20/19 12/21/19 11:45 16:14 06:13 WBC 8.5 RBC 5.34 Hgb 16.5 Hct 49 MCV 92 MCH 31 MCHC 34 RDW 16 H Plt Count 260 MPV 8.7 Neut % (Auto) 69.2 Lymph % (Auto) 16.3 Irwin % (Auto) 10.3 Eos % (Auto) 3.3 Baso % (Auto) 0.9 Absolute Neuts (auto) 5.9 Absolute Lymphs (auto) 1.4 Absolute Monos (auto) 0.9 H Absolute Eos (auto) 0.3 Absolute Basos (auto) 0.1 Absolute Nucleated RBC 0.0 Nucleated RBC % 0.1 POC Glucose (mg/dL) 95 140 H 12/21/19 12/21/19 06:13 07:52 Sodium 136 Potassium 4.1 Chloride 102 Carbon Dioxide 28 Anion Gap 6 BUN 15 Creatinine 0.61 L Est GFR ( Amer) 164.9 Est GFR (Non-Af Amer) 136.2 BUN/Creatinine Ratio 24.6 H Glucose 93 POC Glucose (mg/dL) 89 Calcium 8.8 Microbiology 12/18/19 11:00 Skin and Soft Tissue MRSA/MSSA (PCR - Final Toe - Right Big Mrsa Negative S.aureus Positive Gram Stain - Final Wound Culture - Final Strep Dysgalactiae (Grp C) Staphylococcus Aureus Assessment: 1. Right foot cellulitis with nonhealing wound. Wound culture with Group C strep and staph aureus. Afebrile and no leukocytosis. MRI with cellulitis and possible early osteomyelitis of the 2nd metatarsal. ABIs normal. 2. Stasis dermatitis and venous insufficiency. Bilateral LEs with stasis dermatitis and hemosiderin staining. 3. Morbid obesity. BMI 32.5 4. DM2. Plan: Continue ceftriaxone and Flagyl, will need an extended course of IV ABX at discharge in the setting of osteomyelitis.
--- NOTE | 2019-12-21 11:14 | PN ---
Subjective Date of Service: 12/21/19 Interval History: Mr. Monaco states that his R 3rd digit is feeling better since admission. He reports pain with walking prior to admission, but notes that he has not been walking much since admission. He is having difficulty with adhering to heel only weight bearing. He is eating, drinking well. He c/o coughing, which he states is chronic. He denies CP, SOB, fever, chills. Family History: Unchanged from Admission Social History: Unchanged from Admission Past Medical History: Unchanged from Admission Objective Active Medications: Acetaminophen (Tylenol Tab*) 650 mg PO Q4H PRN PRN Reason: MILD PAIN or TEMP > 100.4 Last Admin: 12/18/19 19:57 Dose: 650 mg Collagenase (Santyl 250 Units/Gm Oint*) 1 applic TOPICAL DAILY [facility] Last Admin: 12/21/19 10:10 Dose: Not Given Dextrose (D50w Syringe 50 Ml*) 12.5 gm IV PUSH .FOR FS < 60 - SS PRN PRN Reason: FS < 60 Enoxaparin Sodium (Lovenox(*)) 40 mg SUBCUT Q24H [facility] Last Admin: 12/20/19 20:42 Dose: 40 mg Ceftriaxone Sodium 1 gm/ (Sodium Chloride) 50 mls @ 100 mls/hr IVPB Q24H [facility] Last Admin: 12/20/19 20:42 Dose: 100 mls/hr Metronidazole/Sodium Chloride (Flagyl 500 Mg Ivpb*) 500 mg in 100 mls @ 100 mls /hr IVPB Q8H [facility] Last Admin: 12/21/19 09:34 Dose: 100 mls/hr Insulin Human Lispro (Humalog*) 0 units SUBCUT [facility]; Protocol Last Admin: 12/21/19 07:54 Dose: Not Given Lisinopril (Prinivil Tab*) 5 mg PO DAILY [facility] Last Admin: 12/21/19 09:34 Dose: 5 mg Metformin HCl (Glucophage*) 500 mg PO DAILY [facility] Last Admin: 12/21/19 09:34 Dose: 500 mg Nicotine (Nicotine Patch 14 Mg/24 Hr*) 1 patch TRANSDERM DAILY [facility] Last Admin: 12/21/19 09:34 Dose: 1 patch Ondansetron HCl (Zofran Inj*) 4 mg IV Q4H PRN PRN Reason: NAUSEA/VOMITING Pharmacy Profile Note (Nicotine Patch Removal Note*) 1 note FOLLOW UP 0600 [facility] Last Admin: 12/21/19 07:18 Dose: 1 note Vital Signs: Temp Pulse Resp BP Pulse Ox 98.2 F 68 18 160/82 93 12/21/19 07:15 12/21/19 09:27 12/21/19 08:00 12/21/19 09:27 12/21/19 07:15 Oxygen Devices in Use Now: None Appearance: Mr. Monaco is an obese middle-aged white male who is laying in bed, appears to be in no acute distress. Eyes: No Scleral Icterus, PERRLA Ears/Nose/Mouth/Throat: NL Teeth, Lips, Gums, Clear Oropharnyx, Mucous Membranes Moist Neck: NL Appearance and Movements; NL JVP, Trachea Midline Respiratory: Symmetrical Chest Expansion and Respiratory Effort, Clear to Auscultation - diminished throughout without wheeze, rhonchi, rales Cardiovascular: NL Sounds; No Murmurs; No JVD, RRR Abdominal: NL Sounds; No Tenderness; No Distention, No Hepatosplenomegaly Extremities: - - RLE with crusting, flaking skin; there is an area of eschar between digits 1 and 2, and an area of eschar at the dorsal aspect of the 3rd digit; there is no drainage or apparent wound opening. Neurological: Alert and Oriented x 3 Result Diagrams: 12/21/19 06:13 12/21/19 06:13 Microbiology and Other Data: Microbiology 12/18/19 11:00 Skin and Soft Tissue MRSA/MSSA (PCR - Final Toe - Right Big Mrsa Negative S.aureus Positive Gram Stain - Final Assess/Plan/Problems-Billing Assessment: 59 yo white male without significant PMHx who has been lost to f/u presents with right foot wounds x ~5 months. - Patient Problems (1) Wound of right foot Comment: -nonhealing wounds to right foot, present for +5 months -has significant dryness and flaking, as well as areas of eschar -wound consult ordered -will need good glycemic control -ortho following, considering possible washout -ID consulted for antibiotic recommendations -meanwhile, continue ceftriaxone, metronidazole (2) Osteomyelitis Comment: -2/2 nonhealing wounds of right foot -MRI findings conistent with suspected osteomyelitis of right 2nd distal metatarsal -wound culture PCR negative for MRSA; positive for staph aureus, strep dysgalactiae -ID Dr No consulted; continue ceftriaxone, metronidazole at this time -appreciate ortho consult, awaiting decision regarding surgical debridement of wounds (3) Diabetes mellitus type 2 in obese Comment: -new diagnosis during this hospitalization with A1c of 6.8 -continue lispro SS -starting 500 mg metformin and will monitor for GI sxs -carbohydrate consistent diet -nutrition consult (4) Hypertension Comment: -new dx during this hospitalization -moderate control with SBR 110-160's -continue new lisinopril (5) Tobacco use Comment: -continue nicotine patch (6) DVT prophylaxis Comment: -lovenox held; last dose 12/20 evening (7) Full code status Status and Disposition: Inpatient. Discharge when stable. Anticipate extended course of antibiotics and possible OLIVIA.
--- NOTE | 2019-12-21 13:19 | PN ---
Progress Note - Progress Note Date of Service: 12/21/19 SOAP: Subjective: []Pt seen at bedside. He is comfortable without complaints. Feels RLE erythema and swelling have improved since admission. Objective: []Gen: NAD, nontoxic appearing RLE: hemosiderin staining lower leg. Hyperkeratotic skin of forefoot circumfrentially much of which is now sloughing, removed sloughing areas. Healing cracked skin 1st webspace. No oozing or discharge. Calves supple, nontender. Assessment: []Likely osteomyelitis R forefoot. Cellulitis, improving. Plan: []Cont abx per ID Dr. De Jesus will come discuss treatment options with patient tonight. Ankle-brachial indices: Right: Value (SBP) Index Brachial: 149 Posterior tibialis: 174 1.14 Dorsalis pedis: 161 1.06 Left: Value (SBP) Index Brachial: 152 Posterior tibialis: 162 1.07 Dorsalis pedis: 158 1.04 Doppler waveforms (acquired at rest): In the interrogated lower extremity arteries, Doppler waveforms are triphasic in all distributions. Volume pulse recordings (acquired at rest): Volume pulse recordings, measured at the bilateral ankles, are symmetric. IMPRESSION: No evidence of claudication or significant arterial insufficiency by vascular ultrasound MELISSA standards. Vital Signs Temp 98.4 F 12/21/19 11:42 Pulse 65 12/21/19 11:42 Resp 18 12/21/19 11:42 BP 147/72 12/21/19 11:42 Pulse Ox 91 12/21/19 11:42 Intake & Output 12/20/19 12/21/19 12/21/19 18:59 06:59 18:59 Intake Total 132 960 4801 Output Total 760 700 Balance 200 250 300 Intake: IV Fluids 30 NS (0.9%) 30 IVPB 100 250 ABX - CEFTRIAXONE 50 ABX - FLAGYL 100 200 Oral 830 0 1000 Output: Urine 760 700 Other: Estimated Void Medium Date of Last Bowel [id number] Movement # Bowel Movements 0 0 1 Estimated Stool Amount Large # Voids 0 1 Laboratory Last Values WBC 8.5 10^3/uL (3.5-10.8) 12/21/19 06:13 RBC 5.34 10^6 /uL (4.18-5.48) 12/21/19 06:13 Hgb 16.5 g/dL (14.0-18.0) 12/21/19 06:13 Hct 49 % (42-52) 12/21/19 06:13 MCV 92 fL (80-94) 12/21/19 06:13 MCH 31 pg (27-31) 12/21/19 06:13 MCHC 34 g/dL (31-36) 12/21/19 06:13 RDW 16 % (10-15) H 12/21/19 06:13 Plt Count 260 10^3/uL (150-450) 12/21/19 06:13 MPV 8.7 fL (7.4-10.4) 12/21/19 06:13 Neut % (Auto) 69.2 % 12/21/19 06:13 Lymph % (Auto) 16.3 % 12/21/19 06:13 Emmons % (Auto) 10.3 % 12/21/19 06:13 Eos % (Auto) 3.3 % 12/21/19 06:13 Baso % (Auto) 0.9 % 12/21/19 06:13 Absolute Neuts (auto) 5.9 10^3/ul (1.5-7.7) 12/21/19 06:13 Absolute Lymphs (auto) 1.4 10^3/ul (1.0-4.8) 12/21/19 06:13 Absolute Monos (auto) 0.9 10^3/ul (0-0.8) H 12/21/19 06:13 Absolute Eos (auto) 0.3 10^3/ul (0-0.6) 12/21/19 06:13 Absolute Basos (auto) 0.1 10^3/ul (0-0.2) 12/21/19 06:13 Absolute Nucleated RBC 0.0 10^3/ul 12/21/19 06:13 Nucleated RBC % 0.1 12/21/19 06:13 ESR 14 mm/Hr (0-19) 12/17/19 18:10 Sodium 136 mmol/L (135-145) 12/21/19 06:13 Potassium 4.1 mmol/L (3.5-5.0) 12/21/19 06:13 Chloride 102 mmol/L (101-111) 12/21/19 06:13 Carbon Dioxide 28 mmol/L (22-32) 12/21/19 06:13 Anion Gap 6 mmol/L (2-11) 12/21/19 06:13 BUN 15 mg/dL (6-24) 12/21/19 06:13 Creatinine 0.61 mg/dL (0.67-1.17) L 12/21/19 06:13 Est GFR ( Amer) 164.9 (>60) 12/21/19 06:13 Est GFR (Non-Af Amer) 136.2 (>60) 12/21/19 06:13 BUN/Creatinine Ratio 24.6 (8-20) H 12/21/19 06:13 Glucose 93 mg/dL (70-100) 12/21/19 06:13 POC Glucose (mg/dL) 82 mg/dL (70-100) 12/21/19 11:46 Hemoglobin A1c 6.8 % (4.0-5.6) H 12/17/19 18:10 Calcium 8.8 mg/dL (8.6-10.3) 12/21/19 06:13 Total Bilirubin 0.50 mg/dL (0.2-1.0) 12/17/19 18:10 AST 14 U/L (13-39) 12/17/19 18:10 ALT 10 U/L (7-52) 12/17/19 18:10 Alkaline Phosphatase 65 U/L (34-104) 12/17/19 18:10 C-Reactive Protein 25.76 mg/L (<8.01) H 12/17/19 18:10 Total Protein 7.8 g/dL (6.4-8.9) 12/17/19 18:10 Albumin 3.7 g/dL (3.2-5.2) 12/17/19 18:10 Globulin 4.1 g/dL (2-4) H 12/17/19 18:10 Albumin/Globulin Ratio 0.9 (1-3) L 12/17/19 18:10 Triglycerides 122 mg/dL 12/18/19 05:09 Cholesterol 152 mg/dL 12/18/19 05:09 LDL Cholesterol 88 mg/dL 12/18/19 05:09 HDL Cholesterol 40.1 mg/dL 12/18/19 05:09 <Angélica Mcintosh - Last Filed: 12/21/19 13:19> - Progress Note SOAP: I saw and examined sil. He has chronic stasis changes of the skin in his b/l LE's. On the right he has swelling and erythema. No discrete ulcers or wound appreciated although he does have cracking from dried out skin. No tenderness although he is very neuropathic. He thinks foot has improved since starting abx. MRI with osteomyelitis at 2nd MT head and possibly base of 2nd toe prox phalanx. MELISSA's WNL. A/P: Right foot cellulitis with likely underlying 2nd ray osteomyelitis. disc dx and treatment options with patient at length. We discussed both op and non-op options. He would strongly prefer to try and treat infection without surgery if possible. I did explain risk of persistent or even worsening infection with abx alone. He understands risks but would prefer to try. We did discuss that he may fail abx treatment and still need a toe/ray amp or possibly even more extensive amp should infection worsen. He is ok with this. I will plan on holding off on surgery for now. Plan for abx per ID. Ortho will follow along. Kaiser De Jesus MD <Kaiser De Jesus - Last Filed: 12/21/19 17:10>
[2019-12-21] MEDS: cefTRIAXone(*) 1 GM in NS 0.9% 50 ML* 50 ML IVPB SCH (21:08)
[2019-12-22] MEDS: metroNIDAZOLE IV 500 MG/100ML* 500 MG/100 ML BAG IVPB SCH ×3 (00:14→17:09)
[2019-12-22] MEDS: Nicotine Patch Removal NOTE FOLLOW UP SCH (06:07)
--- NOTE | 2019-12-22 11:04 | PN ---
Progress Note - Progress Note Date of Service: 12/22/19 SOAP: Subjective: CC: Right foot infection HPI: Mr. Monaco is a 59 yo male with PMH significant for obesity, peripheral neuropathy, and DM2; who presented to the hospital with a right foot infection. He states that the area started out as dry skin and then developed a black area. The black area on the right foot was debrided yesterday and there are no open areas on the foot. Denies fever, chills, nausea, or vomiting. He reports 5- 6 loose stools daily, this is increased from his baseline, but has been stable for a few days and is not getting better. He has baseline peripheral neuropathy. Objective: Vital Signs - 8 hr 12/22/19 12/22/19 12/22/19 04:04 07:15 09:46 Temperature 97.5 F 97.2 F Pulse Rate 69 68 Respiratory 24 20 Rate Blood Pressure 140/59 135/42 (mmHg) O2 Sat by Pulse 94 91 Oximetry Physical Exam: General: NAD, sitting up in bed Neurological: Alert and Oriented HEENT: Moist MM Cardiovascular: Heart rate regular Respiratory: Lung sounds clear, diminished Abdominal: Bowel sounds present; ABD soft, non tender, and obese MSK: GIFFORD Skin: No rash. Bilateral LEs with hemosiderin staining Laboratory Tests 12/17/19 12/21/19 12/21/19 18:10 06:13 06:13 WBC 8.5 Hgb 16.5 Hct 49 Plt Count 260 Sodium 136 Potassium 4.1 Chloride 102 Carbon Dioxide 28 BUN 15 Creatinine 0.61 L Glucose 93 C-Reactive Protein 25.76 H Microbiology 12/18/19 11:00 Skin and Soft Tissue MRSA/MSSA (PCR - Final Toe - Right Big Mrsa Negative S.aureus Positive Gram Stain - Final Wound Culture - Final Strep Dysgalactiae (Grp C) Staphylococcus Aureus Assessment: 1. Right foot cellulitis with suspected underlying acute osteomyelitis. Wound culture with Group C strep and staph aureus. Afebrile and no leukocytosis. MRI with cellulitis and possible early osteomyelitis of the 2nd metatarsal. ABIs normal. 2. Stasis dermatitis and venous insufficiency. Bilateral LEs with stasis dermatitis and hemosiderin staining. 3. Morbid obesity. BMI 32.5 4. DM2. Plan: Continue ceftriaxone and Flagyl (day 5), will need an extended course of IV ABX at discharge in the setting of osteomyelitis. Discharge plan: Dalvance 1500mg IV x1, followed by repeat dose 7 days later and Flagyl 500 mg PO TID for 14 days. Followup with ID outpatient 1-2 weeks. Followup labs at time of second dalvance injection. 25 minutes floor time: > 50% discussing plan for extended course of IV ABX, followup, and when to call the office (rash, fever, diarrhea)
[2019-12-22] MEDS: metFORMIN* 500 MG TAB PO SCH (11:30)
[2019-12-22] MEDS: Lisinopril TAB* 5 MG PO SCH (11:30)
[2019-12-22] MEDS: Nicotine PATCH 14 MG/24 HR* PATCH TRANSDERM SCH (11:30)
[2019-12-22] MEDS: Insulin LISPRO* 1 UNITS UNIT SUBCUT SCH ×2 (11:46→17:10)
[2019-12-22] MEDS: Acetaminophen TAB* 325 MG PO PRN (11:46)
[2019-12-22] MEDS: Collagenase 250 UNITS/GM OINT* 1 APPLIC OINT TOPICAL SCH (11:47)
--- NOTE | 2019-12-22 13:05 | PN ---
Progress Note - Progress Note Date of Service: 12/22/19 SOAP: Subjective: [] Pt seen at bedside. He feels well, no complaints. No fever, chills, CP, SOB , dizziness, nausea. R Plantar foot feels tight, no foot pain. Objective: Gen: NAD, nontoxic appearing RLE: Foot has been washed, much improvement of sloughing skin. Underlying skin with erythema of forefoot remains. Still with cracking of interdigital spaces, healing without any discharge. No ulcers or wounds present. f/e at ankle and MTPs nonpainful. Sensation intact distally, neuropathy at baseline. Dp palpable. Calves supple, nontender. + hemosiderin staining bl lower legs. Assessment: R foot cellulitis improving, likely 2nd ray osteo. Plan: [] WBAT, can have post op shoe for comfort if desired/ if shoes do not fit with swelling Wound care consulted to help with dry/cracking skin, follow instruction of soap and water wash + lachydrin Pt confirms desire for nonop treatment. Understands infection may persist or worsen. Agrees to nonop trial, abx, close follow up and understands if worsening will require amp of 2nd toe/ray or more aggressive amp if worsening has occurred Dr De Jesus will re-eval andrew, likely DC after this Vital Signs Temp 97.2 F 12/22/19 09:46 Pulse 68 12/22/19 07:15 Resp 20 12/22/19 09:46 BP 135/42 12/22/19 07:15 Pulse Ox 91 12/22/19 07:15 Intake & Output 12/21/19 12/22/19 12/22/19 18:59 06:59 18:59 Intake Total 1140 260 600 Output Total 700 Balance 440 260 600 Intake: IV Fluids 30 260 ABX - CEFTRIAXONE 100 NS (0.9%) 30 60 metronidazole 100 IVPB 110 ABX - FLAGYL 110 Oral 1000 0 600 Output: Urine 700 Other: Estimated Void Medium # Bowel Movements 1 Estimated Stool Amount Large # Voids 1 0 Laboratory Last Values WBC 8.5 10^3/uL (3.5-10.8) 12/21/19 06:13 RBC 5.34 10^6 /uL (4.18-5.48) 12/21/19 06:13 Hgb 16.5 g/dL (14.0-18.0) 12/21/19 06:13 Hct 49 % (42-52) 12/21/19 06:13 MCV 92 fL (80-94) 12/21/19 06:13 MCH 31 pg (27-31) 12/21/19 06:13 MCHC 34 g/dL (31-36) 12/21/19 06:13 RDW 16 % (10-15) H 12/21/19 06:13 Plt Count 260 10^3/uL (150-450) 12/21/19 06:13 MPV 8.7 fL (7.4-10.4) 12/21/19 06:13 Neut % (Auto) 69.2 % 12/21/19 06:13 Lymph % (Auto) 16.3 % 12/21/19 06:13 Cherry % (Auto) 10.3 % 12/21/19 06:13 Eos % (Auto) 3.3 % 12/21/19 06:13 Baso % (Auto) 0.9 % 12/21/19 06:13 Absolute Neuts (auto) 5.9 10^3/ul (1.5-7.7) 12/21/19 06:13 Absolute Lymphs (auto) 1.4 10^3/ul (1.0-4.8) 12/21/19 06:13 Absolute Monos (auto) 0.9 10^3/ul (0-0.8) H 12/21/19 06:13 Absolute Eos (auto) 0.3 10^3/ul (0-0.6) 12/21/19 06:13 Absolute Basos (auto) 0.1 10^3/ul (0-0.2) 12/21/19 06:13 Absolute Nucleated RBC 0.0 10^3/ul 12/21/19 06:13 Nucleated RBC % 0.1 12/21/19 06:13 ESR 14 mm/Hr (0-19) 12/17/19 18:10 Sodium 136 mmol/L (135-145) 12/21/19 06:13 Potassium 4.1 mmol/L (3.5-5.0) 12/21/19 06:13 Chloride 102 mmol/L (101-111) 12/21/19 06:13 Carbon Dioxide 28 mmol/L (22-32) 12/21/19 06:13 Anion Gap 6 mmol/L (2-11) 12/21/19 06:13 BUN 15 mg/dL (6-24) 12/21/19 06:13 Creatinine 0.61 mg/dL (0.67-1.17) L 12/21/19 06:13 Est GFR ( Amer) 164.9 (>60) 12/21/19 06:13 Est GFR (Non-Af Amer) 136.2 (>60) 12/21/19 06:13 BUN/Creatinine Ratio 24.6 (8-20) H 12/21/19 06:13 Glucose 93 mg/dL (70-100) 12/21/19 06:13 POC Glucose (mg/dL) 91 mg/dL (70-100) 12/22/19 08:45 Hemoglobin A1c 6.8 % (4.0-5.6) H 12/17/19 18:10 Calcium 8.8 mg/dL (8.6-10.3) 12/21/19 06:13 Total Bilirubin 0.50 mg/dL (0.2-1.0) 12/17/19 18:10 AST 14 U/L (13-39) 12/17/19 18:10 ALT 10 U/L (7-52) 12/17/19 18:10 Alkaline Phosphatase 65 U/L (34-104) 12/17/19 18:10 C-Reactive Protein 25.76 mg/L (<8.01) H 12/17/19 18:10 Total Protein 7.8 g/dL (6.4-8.9) 12/17/19 18:10 Albumin 3.7 g/dL (3.2-5.2) 12/17/19 18:10 Globulin 4.1 g/dL (2-4) H 12/17/19 18:10 Albumin/Globulin Ratio 0.9 (1-3) L 12/17/19 18:10 Triglycerides 122 mg/dL 12/18/19 05:09 Cholesterol 152 mg/dL 12/18/19 05:09 LDL Cholesterol 88 mg/dL 12/18/19 05:09 HDL Cholesterol 40.1 mg/dL 12/18/19 05:09
--- NOTE | 2019-12-22 17:09 | PN ---
Subjective Date of Service: 12/22/19 Interval History: Mr. Monaco states he is feeling well. He has discomfort in the RLE with ambulation only. He is not interested in surgical intervention at this time and has opted for antibiotics only. He c/o cough that he reports is due to history of smoking. He has occasional slight nausea with loose stools approximately 4-5 times daily; he denies liquid stool, fever, abdominal pain. No other complaints today. Family History: Unchanged from Admission Social History: Unchanged from Admission Past Medical History: Unchanged from Admission Objective Active Medications: Acetaminophen (Tylenol Tab*) 650 mg PO Q4H PRN PRN Reason: MILD PAIN or TEMP > 100.4 Last Admin: 12/22/19 11:46 Dose: 650 mg Ammonium Lactate (Lac-Hydrin 12 %) 1 applic TOPICAL DAILY [facility] Collagenase (Santyl 250 Units/Gm Oint*) 1 applic TOPICAL DAILY [facility] Last Admin: 12/22/19 11:47 Dose: Not Given Dextrose (D50w Syringe 50 Ml*) 12.5 gm IV PUSH .FOR FS < 60 - SS PRN PRN Reason: FS < 60 Ceftriaxone Sodium 1 gm/ (Sodium Chloride) 50 mls @ 100 mls/hr IVPB Q24H [facility] Last Admin: 12/21/19 21:08 Dose: 100 mls/hr Metronidazole/Sodium Chloride (Flagyl 500 Mg Ivpb*) 500 mg in 100 mls @ 100 mls /hr IVPB Q8H [facility] Last Admin: 12/22/19 11:30 Dose: 100 mls/hr Insulin Human Lispro (Humalog*) 0 units SUBCUT AC [facility]; Protocol Last Admin: 12/22/19 11:46 Dose: Not Given Lisinopril (Prinivil Tab*) 5 mg PO DAILY [facility] Last Admin: 12/22/19 11:30 Dose: 5 mg Metformin HCl (Glucophage*) 500 mg PO DAILY [facility] Last Admin: 12/22/19 11:30 Dose: 500 mg Nicotine (Nicotine Patch 14 Mg/24 Hr*) 1 patch TRANSDERM DAILY [facility] Last Admin: 12/22/19 11:30 Dose: 1 patch Ondansetron HCl (Zofran Inj*) 4 mg IV Q4H PRN PRN Reason: NAUSEA/VOMITING Pharmacy Profile Note (Nicotine Patch Removal Note*) 1 note FOLLOW UP 0600 RAMBO Last Admin: 12/22/19 06:07 Dose: 1 note Vital Signs: Temp Pulse Resp BP Pulse Ox 98.4 F 64 20 112/65 92 12/22/19 11:15 12/22/19 11:15 12/22/19 11:15 12/22/19 11:15 12/22/19 11:15 Oxygen Devices in Use Now: None Appearance: Mr. Monaco is an obese, middle-aged white male who is sitting up in bed. He appears to be in no acute distress and is pleasant, cooperative. Eyes: No Scleral Icterus, PERRLA Ears/Nose/Mouth/Throat: NL Teeth, Lips, Gums, Clear Oropharnyx, Mucous Membranes Moist Neck: NL Appearance and Movements; NL JVP, Trachea Midline Respiratory: Symmetrical Chest Expansion and Respiratory Effort, Clear to Auscultation Cardiovascular: NL Sounds; No Murmurs; No JVD, RRR, No Edema Abdominal: NL Sounds; No Tenderness; No Distention, No Hepatosplenomegaly Extremities: No Edema, No Clubbing, Cyanosis Skin: - - R foot with layer of thick, flaking skin at plantar aspect of foot; there are no apparent open wounds to the dorsum of the foot; sensation and movement intact; strong pedal pulses b/l Neurological: Alert and Oriented x 3 Result Diagrams: 12/21/19 06:13 12/21/19 06:13 Microbiology and Other Data: Microbiology 12/18/19 11:00 Skin and Soft Tissue MRSA/MSSA (PCR - Final Toe - Right [place] Negative S.aureus Positive Gram Stain - Final Assess/Plan/Problems-Billing Assessment: 59 yo white male without significant PMHx who has been lost to f/u presents with right foot wounds x ~5 months. - Patient Problems (1) Wound of right foot Comment: -nonhealing wounds to right foot, present for +5 months -had significant dryness and flaking that has resolved since washed; no apparent underlying open wounds -ortho following; thank you for recommendations -patient opting for abx only; therefore will likely d/c tomorrow on IV abx -ID consulted for antibiotic recommendations; will d/c on Dalvance -meanwhile, continue ceftriaxone, metronidazole (2) Osteomyelitis Comment: -2/2 nonhealing wounds of right foot -MRI findings conistent with suspected osteomyelitis of right 2nd distal metatarsal -wound culture PCR negative for MRSA; positive for staph aureus, strep dysgalactiae -ID consulted; continue ceftriaxone, metronidazole at this time -appreciate ortho consult; likely will not have wound debridement (3) Diabetes mellitus type 2 in obese Comment: -new diagnosis during this hospitalization with A1c of 6.8 -FS 80-90's today -will d/c lispro SS, FS -starting 500 mg metformin and will monitor for GI sxs -carbohydrate consistent diet -nutrition consult (4) Hypertension Comment: -new dx during this hospitalization -moderate control with SBR 110-140's -continue new lisinopril (5) Tobacco use Comment: -continue nicotine patch (6) DVT prophylaxis Comment: -lovenox held; last dose 12/20 evening; awaiting final plan from ortho, as there is still some possibility of amputation (7) Full code status Status and Disposition: Inpatient. Discharge when stable. Anticipate extended course of antibiotics and possible OLIVIA.
[2019-12-22] MEDS: Ammonium Lactate 12% 1 APPLIC TUBE TOPICAL SCH (17:10)
[2019-12-22] MEDS: cefTRIAXone(*) 1 GM in NS 0.9% 50 ML* 50 ML IVPB SCH (20:28)
[2019-12-23] MEDS: metroNIDAZOLE IV 500 MG/100ML* 500 MG/100 ML BAG IVPB SCH ×3 (00:53→20:44)
[2019-12-23] MEDS: Nicotine Patch Removal NOTE FOLLOW UP SCH (05:52)
[2019-12-23] MEDS: Lisinopril TAB* 5 MG PO SCH (08:49)
[2019-12-23] MEDS: Ammonium Lactate 12% 1 APPLIC TUBE TOPICAL SCH (08:49)
[2019-12-23] MEDS: metFORMIN* 500 MG TAB PO SCH (08:49)
[2019-12-23] MEDS: Collagenase 250 UNITS/GM OINT* 1 APPLIC OINT TOPICAL SCH (08:49)
[2019-12-23] MEDS: Nicotine PATCH 14 MG/24 HR* PATCH TRANSDERM SCH (09:03)
[2019-12-23] MEDS ORDERED: Lactobacillus Acidophilus* 1 TAB PO SCH (10:00)
--- NOTE | 2019-12-23 15:39 | PN ---
Progress Note - Progress Note Date of Service: 12/23/19 SOAP: Subjective: []Pt seen at bedside. Feels well, no fever or chills. Objective: []Gen: NAD, nontoxic appearing RLE: Foot has been washed, much improvement of sloughing skin. Underlying skin with erythema of forefoot remains. Still with cracking of interdigital spaces, healing without any discharge. No ulcers or wounds present. f/e at ankle and MTPs nonpainful. Sensation intact distally, neuropathy at baseline. Dp palpable. Calves supple, nontender. + hemosiderin staining bl lower legs. Assessment: R foot cellulitis improving, likely 2nd ray osteo. Plan: [] WBAT, can have post op shoe for comfort if desired/ if shoes do not fit with swelling Wound care consulted to help with dry/cracking skin, follow instruction of soap and water wash + lachydrin Pt confirms desire for nonop treatment. Understands infection may persist or worsen. Agrees to nonop trial, abx, close follow up and understands if worsening will require amp of 2nd toe/ray or more aggressive amp if worsening has occurred Likely DC after ortho eval
[2019-12-23 20:46] VITALS: BP 153/73
--- NOTE | 2019-12-24 01:00 | DS ---
DISCHARGE SUMMARY: DATE OF ADMISSION: 12/17/19 DATE OF DISCHARGE: 12/23/19 PRIMARY CARE PROVIDER: Neo Garcia MD ATTENDING PROVIDER: Neo George MD * (DICTATED BY KASANDRA LOZA) OTHER PROVIDERS: 1. Kaiser De Jesus MD 2. Michael Banks MD PRIMARY DIAGNOSES: 1. Right lower extremity cellulitis with underlying osteomyelitis. 2. Hypertension. 3. Diabetes. SECONDARY DIAGNOSIS: History of cellulitis of the right lower extremity. STUDIES DONE WHILE IN THE HOSPITAL: 1. Right foot x-ray, impression: Soft tissue swelling. No acute osseous injury if symptoms persist recommend repeat imaging. 2. MRI right lower extremity, impression: Right foot cellulitis with suspected distal second metatarsal osteomyelitis, mild primary osteoarthritis, lateral cuneiform cuboid joint. 3. Ankle brachial indices, impression: No evidence of claudication or significant arterial insufficiency by vascular ultrasound MELISSA standard. CONSULTATIONS WHILE IN THE HOSPITAL: 1. Orthopedic consult. Plan: The patient most likely has osteomyelitis in forefoot which would be explained by brawny edema, cellulitis, increased pain and swelling, preference would be for him to have broad-spectrum IV antibiotic coverage for a few days before surgery, as I am wondering how his skin will heal given the thickened and dried condition. We will follow with orthopedics team. 2. Infectious Disease. Recommendations continue ceftriaxone and Flagyl. He is going to have ABIs, we will likely plan a long course of IV antibiotics for osteomyelitis of the forefoot. DISCHARGE MEDICATIONS: 1. Diphenhydramine 25 mg p.o. t.i.d., p.r.n. [place] Medications: 1. Ammonium lactate 12% one application topically daily. 2. Lactobacillus acidophilus 1 tab p.o. daily. 3. Lisinopril 5 mg p.o. daily. 4. Metformin 500 mg p.o. daily. 5. Nicotine patch 14 mg p.o. q. 24 hours transdermally. HISTORY OF PRESENT ILLNESS/HOSPITAL COURSE: Mr. Monaco is a 59-year-old male with no recent past medical history, who presented to the emergency department on 12/17/19 with complaints of progressive pain and nonhealing wound to the right lower extremity. He reports this has worsened since June. The patient was admitted and MRI was obtained and revealed cellulitis with possible underlying osteomyelitis in the second metatarsal. For this reason the patient was placed on IV antibiotics. Infectious Disease was consulted as was orthopedics. Orthopedics recommended IV antibiotics prior to planned surgical intervention for osteomyelitis. Infectious Disease recommended ceftriaxone and metronidazole with discharge on IV Dalvance. The patient appeared to have an open wound on the dorsal aspect of the foot at the base of the 2nd digit, but once the area was cleaned and debrided from dried flaking skin, the area appeared to be intact with no open wounds. The area was reassessed by Ortho, who continued to recommend surgical intervention but the patient persistently declined, at which point Ortho and Infectious Disease recommend extended course of antibiotics. The patient will follow outpatient with Dr. De Jesus and Dr. Banks for continued management of osteomyelitis and antibiotics. In the meantime the patient will continue on probiotics. Ankle brachial indices were obtained and were within normal limits. He has been given a walking boot as he is unable to fit the right foot in a regular shoe at this time. The patient worked with Physical Therapy who recommended rolling walker but saw no need for outpatient physical therapy. The patient was recommended to wash feet with soap and water daily, pat dry and apply ammonium lactate lotion to feet and legs once daily. The patient is agreeable and eager for discharge. He has plans for discharge to home today and will have his first IV dose of Dalvance tomorrow. During the patient's stay he was noted to have episodes of hypertension. For this he was started on lisinopril 5 mg with good results and his blood pressure remained systolic 120s to 140s with occasional outliers, but was again overall well controlled. His hemoglobin A1c was noted to be 6.8. He was therefore started on metformin 500 mg p.o. daily with good results. He reported no GI upset since starting this, his blood glucose was well controlled. Mr. Monaco is stable for discharge home. PHYSICAL EXAMINATION: Vital Signs: Temperature 98.2 temporal, heart rate 66, respiratory rate 21, oxygen saturation 92% on room air, blood pressure 153/71. General: Mr. Monaco is a well-developed, well-nourished, middle-aged obese white male, who was sitting up in bed. He appears to be in no acute distress. He is pleasant, cooperative, and appropriate. HEENT: PERRL. EOMI. Nonicteric sclerae. Hearing is grossly intact. Oral mucous membranes are moist. There are no lesions. Pharynx is clear. Tongue is at midline. Palate elevates symmetrically. Cardiovascular: Regular rate and rhythm with S1, S2 present. No murmurs, rubs, clicks or gallops. There is no JVD or peripheral edema. Pulmonary: Symmetrical chest expansion. No use of accessory muscles. Diminished breath sounds likely due to body habitus but otherwise clear to auscultation bilaterally without rhonchi, wheeze or rales. Abdomen: Obese. Bowel sounds in all quadrants, soft, nontender to palpation. Musculoskeletal: Full range of motion without pain or deformity. Skin: The right lower extremity has areas of mild flaking skin and is pink underneath. There are no open wounds. Skin is moist due to recent application of medicated cream. Foot is nontender to palpation. Pulses are intact. Neuro: The patient is awake, alert and oriented x3. Cranial nerves II through XII grossly intact and he is able to move all his extremities with motor strength 5/5 bilaterally in the upper and lower extremities. DISCHARGE PLAN: Mr. Monaco will be discharged home. CONDITION: Fair. DIET: 1. Heart healthy. 2. ADA. ACTIVITY: 1. Weightbearing as tolerated. 2. Activity as tolerated. 3. Continue boot for comfort until you can use a shoe. 4. Continue to use walker. MEDICATIONS: 1. Lisinopril. 2. Metoprolol. 3. IV Dalvance first dose tomorrow, next dose will be scheduled at tomorrow's appointment. 4. Wash feet with soap and water daily, pat dry, apply ammonium lactate lotion to feet and legs once daily. EDUCATION: 1. Follow up with primary care provider in 4 to 7 days. 2. Follow up with Dr. Banks, Infectious Disease in 1 to 2 weeks. 3. Follow up with Dr. De Jesus within 2 weeks, sooner if needed. 4. Return to the ER or nearest hospital if you experience any return or worsening of symptoms, increased erythema, edema, opening wounds or drainage from the right foot. Return for high fever, chills, night sweats. Return for chest pain or discomfort, shortness of breath, dizziness, lightheadedness, loss of conscious, high fevers, chills, night sweats or any other worrisome signs or symptoms. This is a summarized report of a complex medical history and hospital stay. For further details, please see the entire medical record. TIME SPENT: Approximately 35 minutes was spent on this discharge, greater than half that time was spent [id number] with the patient discussing discharge plans and instructions. KASANDRA LOZA [id number]/CPS #: [id number] LONG
== END 2019-12-23 17:10 | disposition home health service (06) | DRG 344 ==
LOC: ED 17:09 → MED 19:50
PROVIDERS: ADMIT Nurse Practitioner Adult Health; ATTEND Internal Medicine
DX: E11.69 Type 2 diabetes mellitus with other specified complication (principal); L03.115 Cellulitis of right lower limb; M86.171 Other acute osteomyelitis, right ankle and foot; B95.4 Other streptococcus as the cause of diseases classified elsewhere; B95.61 Methicillin susceptible Staphylococcus aureus infection as the cause of diseases classified elsewhere; I87.2 Venous insufficiency (chronic) (peripheral); F17.210 Nicotine dependence, cigarettes, uncomplicated; I10 Essential (primary) hypertension; E11.621 Type 2 diabetes mellitus with foot ulcer; S91.301A Unspecified open wound, right foot, initial encounter; L97.519 Non-pressure chronic ulcer of other part of right foot with unspecified severity; E11.42 Type 2 diabetes mellitus with diabetic polyneuropathy; E66.01 Morbid (severe) obesity due to excess calories; R11.0 Nausea; Z68.32 Body mass index [BMI] 32.0-32.9, adult; Z91.018 Allergy to other foods; Z91.013 Allergy to seafood; Z79.84 Long term (current) use of oral hypoglycemic drugs
CPT/HCPCS: 36415; 80048; 80053; 80061; 83036; 85025; 85652; 86140; 87070; 87077; 87186; 87205; 87640; 87641; 90686; 93922; 96365; 99283; A9270-GY; J0692; J0696; J1650; J2543; J3370